=== PATIENT | female | born 1940 | race Caucasian/White ===

== ENCOUNTER → 2018-05-23 | Outpatient (CLI) | payer OTHER ==
[~2018-05-23] VITALS: Ht 165.1 cm; Wt 63.5 kg
[~2018-05-23] MED LIST: ALENDRONATE SOD35 MG PO; ASPIR 8181 MG PO; CALTRATE 600 +1 EAC1 PO; CENTRUM SILVER1 EAC4 PO; HYDROCHLOROTHIA25 M2 PO; MOBIC15 MG PO; PREMARIN30 GM TOP; PROBIOTIC1 EAC1 PO; SIMVASTATIN40 MG PO; XALATAN2.5 ML OPHTHALMIC
--- NOTE | ~2018-05-23 | P ---
[facility] [place] [address] PROCEDURE REPORT Name: ABHIJEET MTICHELL Room #: REG [facility]#: [id number] Admission: 05/23/18 Attend Phys: Anjel Lee MD Discharge: Date of : 44 Report #: [id number] THIS REPORT FOR: //name// CC: Mary Lee BRIEF HISTORY: The patient is a 77-year-old woman with history of colon adenomas for high risk screening colonoscopy. PREOPERATIVE DIAGNOSIS: High risk screening colonoscopy. POSTOPERATIVE DIAGNOSES: 1. [id number] left-sided diverticulosis coli. 2. Moderate internal hemorrhoids. MEDICATIONS: Deep sedation with propofol per anesthesia. SPECIMEN: None. ESTIMATED BLOOD LOSS: None. PROCEDURE: Colonoscopy to cecum and terminal ileum. FINDINGS: Prior to propofol sedation, the procedure of colonoscopy discussed with the patient as well as potential risks, benefits, and complications. She indicates she understands and desires to proceed. With the patient in the left lateral decubitus position, digital examination was completed, which revealed no abnormalities. Subsequently, the Novi video colonoscope was introduced in the rectum, advanced under direct vision to the cecum. This was done with minimal difficulty. The cecum was identified by the ileocecal valve and the appendiceal orifice. I was able to advance the scope in the distal segment of the terminal ileum, which was inspected and noted to be unremarkable. At that point, the scope was slowly withdrawn and careful circumferential views obtained including retroflexion of the scope in the ascending colon. Upon slow withdrawal of the scope, the prep was noted to be good. The mucosa was within normal limits, normal vascular pattern, and normal light reflex. As we withdrew the scope, no inflammatory neoplastic lesions were seen. She was noted to have a few scattered diverticula in the proximal colon. There was fairly extensive diverticular disease noted in the left colon, in particular the sigmoid colon. There was no endoscopic evidence of diverticulitis. Scope was further withdrawn. No additional abnormalities were seen. Scope was withdrawn in the rectum, no abnormalities were seen. As we retroflexed the scope, small to moderate internal hemorrhoids were seen. Scope was withdrawn. The patient tolerated the procedure well. [facility] [address] [place] [address] PROCEDURE REPORT Name: ABHIJEET MITCHELL Room #: REG [facility]#: [id number] Admission: 05/23/18 Attend Phys: Anjel Lee MD Discharge: Date of : 44 Report #: [id number] CONDITION OF THE PATIENT UPON DISCHARGE: Following procedure, the patient drowsy, aroused, conversant and will be discharged to home when fully ambulatory. INSTRUCTIONS TO THE PATIENT AND FAMILY AT THE TIME OF DISCHARGE: No neoplastic lesions were seen today. We would give consideration to follow up exam in about 10 years. However, at that point in her life, her overall health status should be considered before proceeding with colonoscopy at that time. She returned to the care of Dr. Mary Chapman and return to see me as needed. <ELECTRONICALLY SIGNED> By: Anjel Lee MD 05/27/18 [id number] [id number] Anjel Lee MD /nt
== END | disposition home or self-care (01) ==
LOC: GI 06:59
DX: Z12.11 Encounter for screening for malignant neoplasm of colon (principal); K57.30 Diverticulosis of large intestine without perforation or abscess without bleeding; K64.8 Other hemorrhoids; I10 Essential (primary) hypertension; E78.5 Hyperlipidemia, unspecified; K21.9 Gastro-esophageal reflux disease without esophagitis; Z86.010 Personal history of colon polyps; Z88.8 Allergy status to other drugs, medicaments and biological substances; Z79.82 Long term (current) use of aspirin; Z79.899 Other long term (current) drug therapy; Z87.891 Personal history of nicotine dependence; Z85.3 Personal history of malignant neoplasm of breast; Z98.890 Other specified postprocedural states; Z98.42 Cataract extraction status, left eye; Z98.41 Cataract extraction status, right eye
CPT/HCPCS: 62110; 62900